=== PATIENT | male | born 1940 | race Caucasian/White ===

== ENCOUNTER 2016-11-23 16:57 | Observation (INO) | payer OTHER ==
[~2016-11-23 16:57] MED LIST: IOPAMIDOL (ISOVUE-300) 100 ML BTL IV ONE
[2016-11-23] MEDS ORDERED: SKIN ADHESIVE (DERMABOND) 1 EACH TP ONE (17:05)
[2016-11-23] MEDS ORDERED: BUPIVACAINE/EPI 0.25% 30 ML SDV ONE (17:05)
[2016-11-23] MEDS ORDERED: ONDANSETRON 4 MG/2 ML VIAL ONE (17:29)
[2016-11-23] MEDS ORDERED: KETOROLAC 30 MG/1 ML SDV ONE (17:29)
[2016-11-23] MEDS ORDERED: ROCURONIUM 50 MG/5 ML VIAL ONE (17:29)
[2016-11-23] MEDS ORDERED: DEXAMETHASONE 4 MG/ML VIAL ONE (17:29)
[2016-11-23] MEDS ORDERED: PROPOFOL 200 MG/20 ML VIAL ONE (17:30)
[2016-11-23] MEDS ORDERED: fentaNYL 100 MCG/2 ML INJ ONE (17:30)
[2016-11-23] MEDS ORDERED: LIDOCAINE 2% 5 ML SDV ONE (17:31)
[2016-11-23] MEDS ORDERED: LIDOCAINE 1% 2 ML INJ ONE (17:31)
[2016-11-23] MEDS ORDERED: MIDAZOLAM 2 MG/2 ML VIAL ONE (17:37)
[2016-11-23] MEDS ORDERED: ceFAZolin 2 GM/DEXTROSE 100 ML IV ONE (18:00)
[2016-11-23] MEDS ORDERED: SUGAMMADEX SODIUM 200 MG/2 ML VIAL IVP ONE (18:33)
[2016-11-23] MEDS ORDERED: HYDROmorphONE/DILAUDID 1 MG/ML SYR IVP PRN (19:37)
[2016-11-23] MEDS ORDERED: HYDROCODONE/APAP 5/325 TAB PO PRN (19:37)
[2016-11-23] MEDS ORDERED: ONDANSETRON 4 MG/2 ML VIAL IVP PRN (19:37)
--- NOTE | 2016-11-23 19:44 | POSTOPPROG ---
Post Op Note Date of Operation: 11/23/16 Surgeon: Grant Avila Anesthesiologist: Jm Anesthesia: GET(General Endotracheal) Pre-op Diagnosis: appendicitis` Post-op Diagnosis: same Procedure: lap appy Findings: acute, dilated, non perforated Inf/Abcess present in the surg proc area at time of surgery?: No EBL: Minimal Specimen(s): appendix
[2016-11-23] MEDS ORDERED: D5W 1/2 NS W/ 20 KCl/L 1,000 ML IV SCH (19:45)
--- NOTE | 2016-11-23 20:38 | GOP ---
[f rep st] OPERATIVE REPORT DATE OF OPERATION: 11/23/2016 SURGEON: Grant Avila MD TELEPHONE CLEANER: None. ANESTHESIA: General endotracheal. ANESTHESIOLOGIST: Jorge Oneal. PREOPERATIVE DIAGNOSIS: Appendicitis. POSTOPERATIVE DIAGNOSIS: Appendicitis. PROCEDURE PERFORMED: Laparoscopic appendectomy. FINDINGS: Acute dilated indurated appendix non-perforated. SPECIMENS: Appendix. ESTIMATED BLOOD LOSS: 5 cc. DESCRIPTION OF PROCEDURE: The patient was greeted in the preoperative suite. Risks, benefits, alte rnatives were discussed. Consent was signed. He was brought back to the operative suite, placed on the OR table in a supine position. After all anesthesia machines including SCDs were on and functi oning, a [employer] time-out was performed. General endotracheal anesthesia was then induced without incident. The abdomen was then prepped and draped in typical sterile fashion. I e ntered the abdomen using the Veress needle in the left upper quadrant after successful insufflation with CO2 to 15 mmHg. I entered the abdomen using the Visiport in an infraumbilical fashion. Once s uccessfully in the abdomen, I placed two other 5 mm trocars, one in the suprapubic and one in the le ft lower quadrant, both under direct visualization. I then identified the appendix which was retroc ecal. I had to mobilize the distal part of the cecum in order to identify it. The tip of the appen ginger was swollen and indurated, but without laurie perforation. It was densely adherent to the underl amy retroperitoneum. After using a combination of Harmonic Scalpel and blunt dissection, I was abl e to successfully get the appendix off the retroperitoneum. I then used the Harmonic Scalpel to zabrina e down the mesoappendix. Once at the appendiceal base, I amputated the appendix from the underlying cecum using a single fire of the Endo-ANKIET blue load stapler. The appendix was then removed using a n EndoCatch bag. The abdomen was then irrigated with warm normal saline noting clear effluent in th e suction canister. Staple line was inspected and noted be hemostatic. I then infiltrated local an esthesia into all the port sites, which were then removed under direct visualization. Pneumoperiton eum was then evacuated. I closed the infraumbilical fascial site with an interrupted 0 Vicryl stitc h in a nzwrqt-en-patar fashion noting excellent fascial reapproximation. The skin was then closed w ith running 4-0 Monocryl over which Dermabond was placed. The patient was then extubated in the operative suite and taken to the PACU in satisfactory conditio n. DRAINS: None. COUNTS: All counts were reported as correct x2. /[id number]/MODL
--- NOTE | 2016-11-24 01:18 | GHP ---
[f rep st] PREOP HISTORY AND PHYSICAL DATE OF ADMISSION: 11/23/2016 CHIEF COMPLAINT: Abdominal pain. HISTORY OF PRESENT ILLNESS: This is a 76-year-old male, who was referred to me by his primary care provider. Patient states that he has had pain since last Saturday, worsening over the week. He saw h is primary care physician today, who was concerned about the pain, who referred him for further imag ing and labs at the [facility]. At [facility], he had a normal white blood cell cou nt and had an ultrasound showing a concerning blind-ending loop in his right lower quadrant. To fur ther delineate this, he had a CT scan, which confirmed appendicitis. He was subsequently referred t o me. He states that he has had some vague abdominal pain for about the last week, worse at night, causing him issues with sleeping. He denies fevers and chills. Nausea and vomiting, but is here mainly be cause of the pain. PAST MEDICAL HISTORY: Hypothyroidism and migraines. PAST SURGICAL HISTORY: [place] teeth extraction and heel surgery in the past. CURRENT MEDICATIONS: Include Synthroid and wawb-dhd-wsqrvhn migraine. MEDICATION ALLERGIES: To Celebrex and diclofenac. REVIEW OF SYSTEMS: A full 10-point review was performed and unless explicitly stated is otherwise n egative. PHYSICAL EXAMINATION: VITAL SIGNS: Temp 36.4, blood pressure 150/80, heart rate 72, and he is 97% on room air. GENERAL: He is alert and oriented, in no acute distress. CV: He has a regular rate and rhythm. LUNGS: Clear to auscultation bilaterally. ABDOMEN: Soft, relatively nondistended, no ntender, although somewhat tender to deep palpation without rebound tenderness or guarding. EXTREMI TIES: Warm. LABORATORY DATA: Normal white blood cell count, H and H are stable. Ultrasound shows what appears to be a dilated appendix to [address] scan confirms this, with some ad jacent stranding. ASSESSMENT AND PLAN: A 76-year-old male with acute appendicitis. I have made arrangements to trans jeannine the patient to the hospital and will subsequently plan to take him urgently to the operating ervin m for laparoscopic exploration and appendectomy. Risks, benefits, and alternatives were discussed. /[id number]/MODL
[2016-11-24 08:49] VITALS: BP 119/65; PULSE 60; RESP 18; TEMP 97.5; O2SAT 93
[2016-11-24] MEDS ORDERED: ERTAPENEM 1 GM in NS 100 ML IV ONE (09:00)
--- NOTE | 2016-11-24 09:24 | GCON ---
[f rep st] CONSULTATION DATE OF CONSULTATION: 11/23/2016 REFERRING PHYSICIAN: Amanda Green MD CHIEF COMPLAINT: Abdominal pain. HISTORY OF PRESENT ILLNESS: This is a 76-year-old male, referred to me by his primary care physicia n, Dr. Green. The patient presented to her office today complaining of vague epigastric pain. Acco rding to the patient, he stated that the pain began Saturday, and has progressed in nature, usually wo rse at night, causing him to have issues with sleeping. He did state on Saturday that he pushed himse lf fairly hard with a hike approximately 12 miles, and had significant amount of pain and distress a fter that. He self-medicated at home, hydrated, subsequently presented today in his PCPs office. She was concerned about his abdominal pain and history, and subsequently ordered some subsequent workup . He was, thus, referred to [facility] for some imaging. He had blood work which showed a normal white blood cell count at 9; however, he did have a left tomas ft. In addition, he had an ultrasound which showed the abnormal appearing loop of thickened, hyperem ic, possible bowel in the right periumbilical region likely representing an inflamed appendix, but i t has a large diameter up to 3 cm. He subsequently had a followup CT scan, which confirmed this. In my clinic today, he endorses all of the above findings. Denies fevers or chills. Denies nausea or vomiting, and otherwise feels well, other than the pain that he is having at night. PAST MEDICAL HISTORY: Hypothyroid and migraine headaches. PAST SURGICAL HISTORY: [place] teeth extraction and a heel spur removal. CURRENT MEDICATIONS: Include Synthroid, wycy-eah-dxfsleq supplements, and qvmx-vrs-smphkgz migraine medication. ALLERGIES: None. PHYSICAL EXAM: GENERAL: He is alert and oriented, in no acute distress. LUNGS: Clear to auscultatio n bilaterally. HEART: He has a regular rate and rhythm without any murmurs, gallops, or rubs. ABDOME N: Soft, nondistended, definitively nontender without rebound tenderness or guarding. EXTREMITIES: W arm and well perfused. LABS: Again, white blood cell count 9. H and H stable at 16 and 46, platelets at 259. Imaging, again, shows the ultrasound showing a dilated what appears to be appendix. CT scan confirme d these findings; but questions rupture given the size of it. ASSESSMENT AND PLAN: A 76-year-old male with abdominal pain, question appendicitis. I had a long discussion with the patient that his presentation is not classic. He does have some str anding surrounding his appendix, so there definitely could be an element of possible rupture and/or acute appendicitis; but given the size of it, there is also concern he may have an underlying tumor within the appendix as well. I counseled the patient that my recommendation would be to take him exp ediently to the operating room for exploration and appendectomy, given his concerning findings and e john today. He wishes to proceed. I will plan to directly admit him to the operating room for expedit ed exploratory laparoscopy with appendectomy. /[id number]/MODL
== END 2016-11-24 13:16 | disposition home or self-care (01) ==
LOC: FSGY 16:57 → F1N 19:29
PROVIDERS: ADMIT Surgery; ATTEND Surgery
PROC: 0DTJ4ZZ Resection of Appendix, Percutaneous Endoscopic Approach (ICD-10-PCS; principal; 2016-11-23 17:30)
DX: K35.80 Unspecified acute appendicitis (principal); E03.9 Hypothyroidism, unspecified; G43.909 Migraine, unspecified, not intractable, without status migrainosus
CPT/HCPCS: 44970; 74177; 76700; 88304; G0378; J0690; J1100; J1335; J2250; J2405; J2704; J3010; Q9967; J1885

== ENCOUNTER → 2017-12-26 | Outpatient (CLI) | payer OTHER | LOC: CIMAGING 13:49 | PROVIDERS: ATTEND Family Medicine | DX: M54.5 Low back pain (principal); M79.1 Myalgia; M25.551 Pain in right hip; R93.7 Abnormal findings on diagnostic imaging of other parts of musculoskeletal system | CPT/HCPCS: 72100-PO; 73502-PO ==